=== PATIENT | female | born 1990 ===

== ENCOUNTER 2018-01-09 23:57 | Emergency (ER) | payer OTHER ==
[2018-01-09 23:57] VITALS: BMI 34.2
[2018-01-10] MEDS ORDERED: Clindamycin in NS 300 MG/50 ML BAG IVPB STA (03:40)
--- NOTE | 2018-01-10 03:51 | ED PDOC ---
HPI: General Adult Time Seen by Provider: 01/10/18 01:00 Chief Complaint (Nursing): ENT Problem Chief Complaint (Provider): ENT Problem History Per: Patient History/Exam Limitations: no limitations Onset/Duration Of Symptoms: Days (x2 weeks) Have you had recent travel within the past 21 days to any of the following countries: [place], [place], [place] or [place]?: No Current Symptoms Are (Timing): Still Present Recently: Treated By A Physician Additional Complaint(s): 27 year old female presents to ED with complaints of throat pain x2 weeks and has no past medical history. Patient notes being seen by a physician for the same complaint and states that the prescribed medications did not provide any relief. (+) vomiting, subjective fevers, and decreased PO intake. PCP: None Past Medical History Reviewed: Historical Data, Nursing Documentation, Vital Signs Vital Signs: Last Vital Signs Temp 97.6 F 01/10/18 16:23 Pulse 78 01/10/18 16:23 Resp 18 01/10/18 16:23 BP 122/68 01/10/18 16:23 Pulse Ox 100 01/10/18 16:23 - Surgical History Surgical History: No Surg Hx - Family History Family History: States: No Known Family Hx - Social History Current smoker - smoking cessation education provided: No Ex-Smoker (has not smoked in the last 12 months): No Alcohol: None Drugs: Denies - Home Medications Home Medications: Ambulatory Orders Medication Instructions Recorded Vitamins [ 1 1 tab PO DAILY #1 03/17/15 Vitamin] Ibuprofen [Motrin] 600 mg PO TID #20 tab 01/10/18 Sulfamethoxazole/Trimethoprim 1 tab PO BID #20 tab 01/10/18 [Bactrim DS 800 mg-160 mg] - Allergies Allergies/Adverse Reactions: Allergies Allergy/AdvReac Type Severity Reaction Status Date / Time Penicillins Allergy RASH Verified 01/10/18 03:36 Review of Systems ROS Statement: Except As Marked, All Systems Reviewed And Found Negative Constitutional: Positive for: Fever (subjective) ENT: Positive for: Throat Pain Gastrointestinal: Positive for: Vomiting, Other ((+) decreased PO intake) Physical Exam - Reviewed Nursing Documentation Reviewed: Yes Vital Signs Reviewed: Yes - Physical Exam Appears: Positive for: Non-toxic, Uncomfortable Skin: Positive for: Normal Color, Warm, Dry Eye Exam: Positive for: Normal appearance, EOMI, PERRL ENT: Positive for: Tonsillar Exudate (right sided), Tonsillar Swelling ( peritonsillar abscess on right side. ). Negative for: Normal ENT Inspection Cardiovascular/Chest: Positive for: Regular Rate, Rhythm. Negative for: Murmur Respiratory: Positive for: Normal Breath Sounds. Negative for: Respiratory Distress Neurologic/Psych: Positive for: Alert, Oriented. Negative for: Motor/Sensory Deficits - Laboratory Results Result Diagrams: 01/10/18 04:18 01/10/18 04:18 - ECG O2 Sat by Pulse Oximetry: 98 (RA) Pulse Ox Interpretation: Normal Medical Decision Making Medical Decision Makin Initial impression: peritonsillar abscess Initial plan: * CTA NECK SOFT TISSUE * Labs * Clindamycin in NS 300mg in 50mL IVPB * Toradol 30mg IV * BCx * Rapid strep * Re-eval 0656 CT FINDINGS: Oropharynx: Bilateral tonsillar enlargement, greater on right than left. Bilobed right tonsillar abscess measures 2 x 3.5 x 1.5 cm in AP, transverse and craniocaudal dimensions. Oropharyngeal airway narrowing. Hypopharynx: Unremarkable. Larynx: Unremarkable. Normal epiglottis. Trachea: Unremarkable. Retropharyngeal space: Unremarkable. Submandibular/parotid glands: Unremarkable. Glands are normal in size. Thyroid: Unremarkable. No enlarged or calcified nodules. Bones/joints: No acute fracture. Soft tissues: Unremarkable. Vasculature: No acute findings. Lymph nodes: Bilateral posterior cervical, jugular, submandibular and submental nodes. Dominant jugular nodes measure up to 2.5 cm. Lung apices: Unremarkable as visualized. IMPRESSION: Right tonsillar abscess. [address] hopkins aware and will come to drain. Patient signed out to Dr. Philippe pending dr hopkins arrival/. Scribe Attestation: Documented by Tete Spain, acting as a scribe for Majo Gilbert MD. Provider Scribe Attestation: All medical record entries made by the Scribe were at my direction and personally dictated by me. I have reviewed the chart and agree that the record accurately reflects my personal performance of the history, physical exam, medical decision making, and the department course for this patient. I have also personally directed, reviewed, and agree with the discharge instructions and disposition. Disposition - Clinical Impression Clinical Impression: Tonsillitis, Peritonsillar abscess - Patient ED Disposition Is Patient to be Admitted: Transfer of Care - Disposition Referrals: Vic Hopkins MD [Staff Provider] - Disposition Time: 07:00 Condition: GOOD Additional Instructions: Take motrin for pain. Take your medications as instructed. Follow up with Dr Hopkins in 2-3 days. Prescriptions: Ibuprofen [Motrin] 600 mg PO TID #20 tab Sulfamethoxazole/Trimethoprim [Bactrim DS 800 mg-160 mg] 1 tab PO BID #20 tab Instructions: Peritonsillar Abscess, Adult Forms: [employer] (Kenyan) Print Language: INDONESIAN Patient Signed Over To: Arabella Philippe Handoff Comments: pending dispo.
[2018-01-10] MEDS ORDERED: Clindamycin 600mg/50ml NS 0 MG/0 ML BAG IVPB ONE (04:18)
[2018-01-10 04:21] LABS: BASO # 0.1 K/uL (0.0-0.2); BASO % 0.8 % (0.0-2.0); EOS # 0.2 K/uL (0.0-0.7); EOS % 2.3 % (0.0-4.0); HEMOGLOBIN 12.2 g/dL (12.0-16.0); LYMPH % 29.5 % (20.0-40.0); MEAN CELL VOLUME 87.1 fl (81.0-99.0); MEAN CORPUSCULAR HEMOGLOBIN 29.9 pg (27.0-31.0); MEAN CORPUSCULAR HGB CONC 34.4 g/dL (33.0-37.0); MONO # 0.5 K/uL (0.0-0.8); MONO % 5.1 % (0.0-10.0); NEUT # 6.4 K/uL (1.8-7.0); NEUT % 62.3 % (50.0-75.0); NRBC % 0.1 % (0.0-0.0); RBC 4.08 Mil/uL (3.80-5.20); RED CELL DISTRIBUTION WIDTH 13.4 % (11.5-14.5); WHITE BLOOD COUNT 10.3 K/uL (4.8-10.8)
[2018-01-10 04:30] LABS: ALB/GLOB RATIO 1.1 (1.0-2.1); ALBUMIN 4.2 g/dL (3.5-5.0); ALT/SGPT 45 U/L (9-52); AST/SGOT 24 U/L (14-36); BLOOD UREA NITROGEN 13 mg/dl (7-17); CALCIUM 9.2 mg/dL (8.4-10.2); GFR AFRICAN-AMERICAN > 60; GFR NON-AFRICAN AMERICAN > 60
[2018-01-10] MEDS ORDERED: Sodium Chloride 0.9% 100 ML ONE (05:38)
[2018-01-10] MEDS ORDERED: Iohexol 300 100 ML IJ ONE (05:38)
--- NOTE | 2018-01-10 06:56 | CT ---
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 All CT scans at this facility use one or more dose reduction techniques, viz.: automated exposure control; ma/kV adjustment per patient size (including targeted exams where dose is matched to indication; i.e. head); or iterative reconstruction technique. Coronal and sagittal reformatted images were created and reviewed. CONTRAST: 85 mL of [id number] administered intravenously. COMPARISON: No relevant prior studies available. FINDINGS: Oropharynx: Bilateral tonsillar enlargement, greater on right than left. Bilobed right tonsillar abscess measures 2 x 3.5 x 1.5 cm in AP, transverse and craniocaudal dimensions. Oropharyngeal airway narrowing. Hypopharynx: Unremarkable. Larynx: Unremarkable. Normal epiglottis. Trachea: Unremarkable. Retropharyngeal space: Unremarkable. Submandibular/parotid glands: Unremarkable. Glands are normal in size. Thyroid: Unremarkable. No enlarged or calcified nodules. Bones/joints: No acute fracture. Soft tissues: Unremarkable. Vasculature: No acute findings. Lymph nodes: Bilateral posterior cervical, jugular, submandibular and submental nodes. Dominant jugular nodes measure up to 2.5 cm. Lung apices: Unremarkable as visualized. IMPRESSION: Right tonsillar abscess.
[2018-01-10] MEDS ORDERED: Dexamethasone 10 MG in Dextrose 5% In Water 50 ML IV ONE (07:10)
[2018-01-10] MEDS ORDERED: Sodium Chloride 0.9% 1,000 ML IV STA (07:10)
[2018-01-10] MEDS ORDERED: Lidocaine/Epi 1% 1:100000 20 ML IJ ONE (07:17)
[2018-01-10] MEDS ORDERED: Lidocaine 1% w Epi 1:100,000 Inj ONE (07:25)
--- NOTE | 2018-01-10 07:30 | ED PDOC ---
- Laboratory Results Result Diagrams: 01/10/18 04:18 01/10/18 04:18 - ECG O2 Sat by Pulse Oximetry: 98 (RA) Pulse Ox Interpretation: Normal Medical Decision Making Medical Decision Makin:00 AM Patient signed out to me by Dr. Gilbert pending abdomen results and Dr. Beltrán consult. [address] Beltrán who performed procedure see his notes. 1300 Patient is improved and tolerating PO and secretions. Scribe Attestation: Documented by Valery Heck acting as a scribe for Denae Mcfarlane MD. Scribe Attestation: All medical record entries made by the Scribe were at my direction and personally dictated by me. I have reviewed the chart and agree that the record accurately reflects my personal performance of the history, physical exam, medical decision making, and the department course for this patient. I have also personally directed, reviewed, and agree with the discharge instructions and disposition. Disposition Discussed With .: Vic Beltrán Doctor Will See Patient In The: Office Counseled Patient/Family Regarding: Studies Performed, Diagnosis, Need For Followup - Clinical Impression Clinical Impression: Tonsillitis, Peritonsillar abscess - POA Present On Arrival: None - Disposition Referrals: Vic Beltrán MD [Staff Provider] - Disposition: Routine/Home Disposition Time: 13:00 Condition: GOOD Additional Instructions: Take motrin for pain. Take your medications as instructed. Follow up with Dr Beltrán in 2-3 days. Prescriptions: Ibuprofen [Motrin] 600 mg PO TID #20 tab Sulfamethoxazole/Trimethoprim [Bactrim DS 800 mg-160 mg] 1 tab PO BID #20 tab Instructions: Peritonsillar Abscess, Adult Print Language: DANISH
--- NOTE | 2018-01-10 13:39 | OP ---
PROCEDURE DATE: 01/10/2018 PREOPERATIVE DIAGNOSIS: Right peritonsillar abscess. POSTOPERATIVE DIAGNOSIS: Right peritonsillar abscess. SIGNIFICANT FINDINGS: Pus on the right peritonsillar area. PROCEDURE: Incision and drainage of right peritonsillar abscess. DESCRIPTION OF PROCEDURE: The patient was placed in seated position. The right peritonsillar area was injected with lidocaine with epinephrine. Incision was made in the right peritonsillar area using an #11 blade, clamped and dissection was done and pus was noted to be coming out. Loculations were broken with a clamp. Bleeding was controlled with time. The patient tolerated the procedure well. Vic Beltrán MD
[2018-01-10 16:23] VITALS: BP 122/68; PULSE 78; RESP 18; TEMP 97.6
[2018-01-10 20:46] VITALS: O2SAT 98
== END 2018-01-10 14:00 | disposition home or self-care (01) ==
LOC: H.ER 23:57
DX: J36 Peritonsillar abscess (principal); Z88.0 Allergy status to penicillin
CPT/HCPCS: 42700; 70491; 80053; 81025; 85025; 87040; 87070; 87430; 96365; 96367; 96375; 99284; J1100; J1885; J7040; Q9967

== ENCOUNTER 2018-04-23 09:56 | Observation (INO) | payer SELFPAY ==
[2018-04-23 10:05] VITALS: BMI 32.3
[2018-04-23] MEDS ORDERED: Sodium Chloride 0.9% 1,000 ML IV STA ×2 (10:38→18:19)
[2018-04-23] MEDS: Clindamycin 600mg/50ml D5W 600 MG/50 ML VIAL IVPB ONE (11:02)
--- NOTE | 2018-04-23 11:07 | ED PDOC ---
HPI: CCC, URI, Sore Throat Time Seen by Provider: 04/23/18 10:18 Chief Complaint (Nursing): ENT Problem Chief Complaint (Provider): ENT Problem History Per: Patient History/Exam Limitations: no limitations Onset/Duration Of Symptoms: Days (2) Associated Symptoms: Fever, Sore Throat, Other (Difficulty swallowing) Additional Complaint(s): 27 years old female with history of peritonsillar abscess presents to the ED complaining of sore throat, fever and difficulty swallowing onset 2 days. PMD: Procedure,Nonphys Past Medical History Reviewed: Historical Data, Nursing Documentation, Vital Signs Vital Signs: Last Vital Signs Temp 98.2 F 04/23/18 10:04 Pulse 72 04/23/18 10:04 Resp 16 04/23/18 10:04 BP 113/73 04/23/18 10:04 Pulse Ox 99 04/23/18 11:13 - Medical History Other PMH: peritonsillar abscess - Surgical History Surgical History: No Surg Hx - Family History Family History: States: Unknown Family Hx - Social History Current smoker - smoking cessation education provided: No Alcohol: None Drugs: Denies - Home Medications Home Medications: Ambulatory Orders Medication Instructions Recorded Vitamins [ 1 1 tab PO DAILY #1 03/17/15 Vitamin] Ibuprofen [Motrin] 600 mg PO TID #20 tab 01/10/18 Sulfamethoxazole/Trimethoprim 1 tab PO BID #20 tab 01/10/18 [Bactrim DS 800 mg-160 mg] - Allergies Allergies/Adverse Reactions: Allergies Allergy/AdvReac Type Severity Reaction Status Date / Time Penicillins Allergy RASH Verified 01/10/18 03:36 Review of Systems ROS Statement: Except As Marked, All Systems Reviewed And Found Negative Constitutional: Positive for: Fever ENT: Positive for: Throat Pain Physical Exam - Reviewed Nursing Documentation Reviewed: Yes Vital Signs Reviewed: Yes - Physical Exam Appears: Positive for: Non-toxic, No Acute Distress ENT: Positive for: Other (Throat swelling and uvula) Neck: Negative for: Normal (Right sided swelling) Respiratory: Positive for: Normal Breath Sounds. Negative for: Wheezing, Respiratory Distress Neurologic/Psych: Positive for: Alert, Oriented (x3) - Laboratory Results Result Diagrams: 04/23/18 10:56 04/23/18 10:56 - ECG O2 Sat by Pulse Oximetry: 99 (RA) Pulse Ox Interpretation: Normal Medical Decision Making Medical Decision Making: Time: 1033 Initial Plan: --CT Neck Soft Tissue --CMP --Urine --CBC --PT.INR --Cleocin 600 mg/ 50ml --NaCl 1,000 ml --Toraodl 30 mg IVP --Blood Culture --Rapid Strep Group A Antigen Scribe Attestation: Documented by Noris Cruz, acting as a scribe for Dhruv Castano MD. Provider Scribe Attestation: All medical record entries made by the Scribe were at my direction and personally dictated by me. I have reviewed the chart and agree that the record accurately reflects my personal performance of the history, physical exam, medical decision making, and the department course for this patient. I have also personally directed, reviewed, and agree with the discharge instructions and disposition. Disposition - Clinical Impression Clinical Impression: Peritonsillar abscess - Patient ED Disposition Is Patient to be Admitted: Transfer of Care - Disposition Referrals: FAMILY PROVIDER,NO [Primary Care Provider] - Disposition: Transfer of Care Disposition Time: 14:54 Condition: FAIR Forms: [employer] (Dutch) Patient Signed Over To: Eddie Bentley III
[2018-04-23 11:08] LABS: BASO # 0.1 K/uL (0.0-0.2); BASO % 0.7 % (0.0-2.0); EOS # 0.2 K/uL (0.0-0.7); EOS % 1.7 % (0.0-4.0); HEMOGLOBIN 12.1 g/dL (12.0-16.0); LYMPH # 2.6 K/uL (1.0-4.3); LYMPH % 28.7 % (20.0-40.0); MEAN CELL VOLUME 87.9 fl (81.0-99.0); MEAN CORPUSCULAR HEMOGLOBIN 29.7 pg (27.0-31.0); MEAN CORPUSCULAR HGB CONC 33.8 g/dL (33.0-37.0); MEAN PLATELET VOLUME 8.4 fl (7.2-11.7); MONO # 0.6 K/uL (0.0-0.8); MONO % 6.9 % (0.0-10.0); NEUT # 5.6 K/uL (1.8-7.0); RBC 4.07 Mil/uL (3.80-5.20); RED CELL DISTRIBUTION WIDTH 12.9 % (11.5-14.5)
[2018-04-23 11:14] LABS: PROTHROMBIN TIME 11.6 Seconds (9.8-13.1)
[2018-04-23 11:15] LABS: ALB/GLOB RATIO 1.3 (1.0-2.1); ALBUMIN 4.1 g/dL (3.5-5.0); ALT/SGPT 46 U/L (9-52); AST/SGOT 44 U/L (14-36); BLOOD UREA NITROGEN 11 mg/dl (7-17); CALCIUM 8.9 mg/dL (8.4-10.2); GFR NON-AFRICAN AMERICAN > 60
[2018-04-23] MEDS ORDERED: Dexamethasone 10 MG in Sodium Chloride 0.9% 50 ML IVPB STA (12:09)
[2018-04-23] MEDS ORDERED: Iohexol 300 100 ML IJ ONE (12:37)
[2018-04-23] MEDS ORDERED: Sodium Chloride 0.9% 50 ML IV ONE (12:37)
--- NOTE | 2018-04-23 14:32 | CT ---
Date of service: 04/23/2018 PROCEDURE: CT NECK WITH CONTRAST HISTORY: Peritonsillar abscess COMPARISON: None available. TECHNIQUE: CT of the neck with intravenous contrast. Coronal and sagittal reformats generated. Intravenous contrast dose: 95 cc Omnipaque 300 the Radiation dose: DLP 290.45 mGy-cm This CT exam was performed using one or more of the following dose reduction techniques: Automated exposure control, adjustment of the mA and/or kV according to patient size, and/or use of iterative reconstruction technique. FINDINGS: NASOPHARYNX: Unremarkable. SUPRAHYOID NECK: There is enlargement of the palatine tonsils right greater than left which encroach medially into the posterior oropharynx and reduce the airway in transverse dimension. Findings are consistent with tonsillitis. In addition, there is a small approximately 16.8 mm x 9.0 mm x 8.0 mm elliptical shaped low-attenuation focus within the right peritonsillar region consistent with a small peritonsillar abscess. There is irregular soft tissue seen in the vallecula likely representing encroaching lingual tonsil as well as probably some residual/ retained secretion. The free margin of the epiglottis unremarkable. Pyriform sinuses relatively symmetric. . INFRAHYOID NECK: Unremarkable larynx, hypopharynx, and supraglottic space. Vocal cords intact. MASS: As above GLANDS: Parotid and submandibular glands unremarkable. Normal size thyroid gland, without nodule the the so far as can be seen. Note that the crossing streak and beam hardening artifact arising from dense clavicles and shoulder girdles partially obscure fine detail of thyroid anatomy. LYMPH NODES: Mildly enlarged level 2 lymph nodes the largest on right jugulodigastric lymph node measuring approximately 2.2 Gy loops of 1 point 2 cm and the left measuring approximately 1.9 x 1.3 cm. . There are a few small submandibular and submental lymph nodes. CERVICAL SPINE: No fracture or focal lesion. VASCULAR STRUCTURES: Unremarkable. OTHER FINDINGS: None. IMPRESSION: Enlarged palatine tonsils which encroach medially reducing the yakelin pharyngeal airway. Findings consistent with tonsillitis. There is a small right-sided peritonsillar abscess as above. . Mildly enlarged bilateral level 2 lymph nodes.
--- NOTE | 2018-04-23 15:11 | ED PDOC ---
- Laboratory Results Result Diagrams: 04/23/18 10:56 04/23/18 10:56 - ECG O2 Sat by Pulse Oximetry: 99 (RA) Pulse Ox Interpretation: Normal Medical Decision Making Medical Decision Makinpm received patient on endorsement, Dr Castano discussed w ENT Dr Sharma recommended observation in ED to see if improves after decadron. 4pm still rates pain 9/10. No drooling. Swallowing saliva. Dining Room Supervisor [phone] used to give results and gauge improvement. 530pm Dr Sharma at bedside, he consented patient to procedure for MANAGER COUNCIL. He recommends admitting for Obs on his service for decadron and IV antibiotics. Care transferred 6pm/. Disposition Counseled Patient/Family Regarding: Studies Performed - Clinical Impression Clinical Impression: Peritonsillar abscess - POA Present On Arrival: None - Disposition Disposition: Hospitalized as Observation Patient Disposition Time: 18:00 Condition: FAIR
[2018-04-23] MEDS ORDERED: Lidocaine 1% w Epi 1:100,000 Inj ONE (17:02)
[2018-04-23] MEDS ORDERED: Lidocaine/Epi 1% 1:100000 20 ML IJ ONE (17:02)
--- NOTE | 2018-04-23 18:14 | CP.PCM.PN ---
Subjective - Date & Time of Evaluation Date of Evaluation: 04/23/18 Time of Evaluation: 18:10 - Subjective Subjective: see below Objective - Vital Signs/Intake and Output Vital Signs (last 24 hours): Temp Pulse Resp BP Pulse Ox 98.2 F 72 16 113/73 99 04/23/18 10:04 04/23/18 10:04 04/23/18 10:04 04/23/18 10:04 04/23/18 15:11 - Medications Medications: Current Medications Sodium Chloride (Sodium Chloride 0.9%) 1,000 mls @ 100 mls/hr IV .Q10H STA Stop: 04/23/18 20:37 Last Admin: 04/23/18 10:59 Dose: 100 mls/hr - Labs Labs: 04/23/18 10:56 04/23/18 10:56 PT 11.6 Seconds (9.8-13.1) 04/23/18 10:56 INR 1.0 04/23/18 10:56 Assessment and Plan - Assessment and Plan (Free Text) Plan: ENT H&P HPI 27 y/o female with 2 days right throat pain and difficulty swallowing. PMH denies Allergies PCN Exam awake, alert, comfortable oc/op clear; right peritonsillar swelling and tenderness. neck soft, tender right LAD fiberoptic laryngoscopy: no hypopharyngeal or laryngeal swelling procedure: I&D right DIRECTOR OF REVENUE informed consent obtained; right soft palate was anesthetized with lidocaine 1% with epi 1:100k. using 18g needle on 10cc syringe, approx 2 cc of pus aspirated from right peritonsillar space. repeat aspiration -ve for further pus. small mucosal incision then made and tissue gently spread with sterile tonsil clamp. minimal expected bleeding. no complications. patient tolerated procedure well. Admit for IV abx, IV steroids and IVf Advance diet Can be d/c home tomorrow if better importance of the need for continued oral abx following discharge, along with probiotics to prevent diarrhea, d/w patient and present, who assisted with translation
[2018-04-23] MEDS ORDERED: Clindamycin 600mg/50ml D5W 600 MG/50 ML VIAL IVPB STA (18:29)
[2018-04-23] MEDS: Dextrose 5%/0.45% NS 1,000 ML IV SCH (20:37)
[2018-04-24] MEDS ORDERED: Dexamethasone 2 MG in Sodium Chloride 0.9% 50 ML IVPB SCH (01:00)
[2018-04-24] MEDS ORDERED: Dexamethasone 10 MG in Sodium Chloride 0.9% 50 ML IVPB SCH ×2 (01:00→09:00)
[2018-04-24] MEDS ORDERED: Clindamycin 600mg/50ml D5W 600 MG/50 ML VIAL IVPB SCH (03:00)
[2018-04-24 06:21] VITALS: RESP 18
[2018-04-24] MEDS: Dextrose 5%/0.45% NS 1,000 ML IV SCH (06:36)
[2018-04-24 08:12] VITALS: TEMP 98
[2018-04-24] MEDS: Clindamycin 600mg/50ml D5W 600 MG/50 ML VIAL IVPB ONE (10:54)
[2018-04-24 14:46] VITALS: BP 118/70; PULSE 76; O2SAT 98
== END 2018-04-24 14:47 | disposition home or self-care (01) ==
LOC: H.ER 09:56 → H.ERHOLD 18:17
PROVIDERS: ADMIT Otolaryngology; ATTEND Otolaryngology
DX: J36 Peritonsillar abscess (principal); Z88.0 Allergy status to penicillin
CPT/HCPCS: 42700; 70491; 80053; 81025; 85025; 85610; 87040; 87070; 87430; 96360; 96361; 96365; 96374; 99285; G0378; J1100; J1885; J7030; J7042; Q9967

== ENCOUNTER 2018-08-10 13:32 | Emergency (ER) | payer SELFPAY ==
[2018-08-10 13:32] VITALS: BMI 32.3
[2018-08-10 13:38] VITALS: BP 127/67; PULSE 95; RESP 16; TEMP 99.7; O2SAT 98
--- NOTE | 2018-08-10 13:53 | ED PDOC ---
HPI: General Adult Time Seen by Provider: 08/10/18 13:36 Chief Complaint (Nursing): Flu-like Symptoms Chief Complaint (Provider): Throat pain History Per: Patient History/Exam Limitations: no limitations Onset/Duration Of Symptoms: Days (2x) Current Symptoms Are (Timing): Still Present Severity: Moderate Additional Complaint(s): 27 year old female with no pertinent past medical history presents to the ED for an evaluation of a sore throat that started 2x days ago. Patient reports having associated symptom of headaches, tactile fevers, and intermittent nausea for the past 2x days. Patient reports taking tylenol with no relief. Patient denies having any other complaints. PMD: None provided. Past Medical History Reviewed: Historical Data, Nursing Documentation, Vital Signs Vital Signs: Last Vital Signs Temp 99.7 F H 08/10/18 13:35 Pulse 95 H 08/10/18 13:35 Resp 16 08/10/18 13:35 BP 127/67 08/10/18 13:35 Pulse Ox 98 08/10/18 13:35 - Medical History PMH: No Chronic Diseases - Surgical History Surgical History: No Surg Hx - Family History Family History: States: No Known Family Hx - Social History Alcohol: None Drugs: Denies - Home Medications Home Medications: Ambulatory Orders Medication Instructions Recorded Clindamycin [Cleocin] 300 mg PO TID #30 cap 04/24/18 Naproxen [Naprosyn] 500 mg PO Q12H #20 tab 04/24/18 Clindamycin [Cleocin] 300 mg PO Q8 10 Days #14 cap 08/10/18 Ibuprofen [Motrin] 600 mg PO Q6 #20 tab 08/10/18 - Allergies Allergies/Adverse Reactions: Allergies Allergy/AdvReac Type Severity Reaction Status Date / Time Penicillins Allergy RASH Verified 08/10/18 13:35 Review of Systems ROS Statement: Except As Marked, All Systems Reviewed And Found Negative Constitutional: Positive for: Fever (tactile) ENT: Positive for: Throat Pain Gastrointestinal: Positive for: Nausea (intermittent). Negative for: Vomiting Neurological: Positive for: Headache Physical Exam - Reviewed Nursing Documentation Reviewed: Yes Vital Signs Reviewed: Yes - Physical Exam Appears: Positive for: Non-toxic, Uncomfortable Head Exam: Positive for: ATRAUMATIC, NORMOCEPHALIC Skin: Positive for: Normal Color, Warm, Dry ENT: Positive for: Tonsillar Exudate (mild, bilaterally), Tonsillar Swelling (grade 3 tonsillar hypertrophy and erythema) Cardiovascular/Chest: Positive for: Regular Rate, Rhythm Respiratory: Positive for: Normal Breath Sounds Lymphatic: Positive for: Adenopathy (adenopathy noted down bilateral anterior cervical chain) Neurologic/Psych: Positive for: Alert, Oriented (3x) - ECG O2 Sat by Pulse Oximetry: 98 (RA) Pulse Ox Interpretation: Normal Medical Decision Making Medical Decision Makin:36 Initial impression: 27 year old female with throat pain Initial plan: * cleocin 300 mg PO * motrin tab 600 mg PO * reevaluation Scribe Attestation: Documented by Sahra George, acting as a scribe for Reema Aguilar Provider Scribe Attestation: All medical record entries made by the Scribe were at my direction and personally dictated by me. I have reviewed the chart and agree that the record accurately reflects my personal performance of the history, physical exam, medical decision making, and the department course for this patient. I have also personally directed, reviewed, and agree with the discharge instructions and disposition. Disposition - Clinical Impression Clinical Impression: Strep throat - Patient ED Disposition Is Patient to be Admitted: No - Disposition Disposition: Routine/Home Disposition Time: 14:29 Condition: STABLE Prescriptions: Clindamycin [Cleocin] 300 mg PO Q8 10 Days #14 cap Ibuprofen [Motrin] 600 mg PO Q6 #20 tab Instructions: Sore Throat in Adults Forms: [employer] (Macanese) Print Language: INDONESIAN
== END 2018-08-10 14:38 | disposition home or self-care (01) ==
LOC: H.ER 13:32
DX: J02.0 Streptococcal pharyngitis (principal); Z88.0 Allergy status to penicillin